=== PATIENT | female | born 1955 | race Caucasian/White ===

== ENCOUNTER 2018-03-26 14:07 | Outpatient (CLI) | payer OTHER | END 2018-03-26 14:08 | disposition home or self-care (01) | LOC: BICMAMMO 14:07 | PROVIDERS: ATTEND Family Medicine | DX: R92.8 Other abnormal and inconclusive findings on diagnostic imaging of breast (principal) | CPT/HCPCS: G0279 ==

== ENCOUNTER → 2018-04-03 | Day surgery (SDC) | payer OTHER | LOC: BICULT 12:06 | PROVIDERS: ATTEND Family Medicine | PROC: 0H9U3ZX Drainage of Left Breast, Percutaneous Approach, Diagnostic (ICD-10-PCS; principal; 2018-04-03) | DX: N60.32 Fibrosclerosis of left breast (principal) | CPT/HCPCS: 19100; 76942; 88305 ==

== ENCOUNTER 2019-08-21 14:19 | Outpatient (CLI) | payer OTHER ==
--- NOTE | 2019-08-21 15:33 | BD ---
BONE DENSITOMETRY USING DEXA: HISTORY: Post menopausal screening for osteoporosis. FINDINGS LUMBAR SPINE BMD (g/cm2) T-SCORE Z-SCORE L1 0.728 -2.4 -1.0 L2 0.766 -2.4 -0.9 L3 0.759 -3.0 -1.3 L4 0.706 -3.2 -1.6 TOTAL 0.740 -2.8 -1.2 BMD (g/cm2) T-SCORE Z-SCORE NECK 0.650 -1.8 -0.6 TOTAL 0.799 -1.2 -0.2 IMPRESSION: Osteoporosis. POS: TPC
--- NOTE | 2019-08-21 16:36 | MMO ---
Bilateral MAMMO Bilat Screen [facility]. CLINICAL HISTORY: Patient is 63 years old and is seen for screening. The patient has no family history of breast cancer. The patient has no personal history of cancer. The patient has a history of left needle biopsy in 2018 - benign. VIEWS: The views performed were: bilateral craniocaudal with tomosynthesis and bilateral mediolateral oblique with tomosynthesis. FILMS COMPARED: The present examination has been compared to prior imaging studies performed at [facility] on 11/11/2011, 12/17/2012, 02/07/2014 and 03/26/2018. This study has been interpreted with the assistance of computer-aided detection. MAMMOGRAM FINDINGS: There are scattered fibroglandular densities. There is a biopsy clip seen in the left breast. There are no suspicious masses, suspicious calcifications, or new areas of architectural distortion. IMPRESSION: THERE IS NO MAMMOGRAPHIC EVIDENCE OF MALIGNANCY. A ROUTINE FOLLOW-UP MAMMOGRAM IN 1 YEAR IS RECOMMENDED. THE RESULTS OF THIS EXAM WERE SENT TO THE PATIENT. ACR BI-RADS Category 2 - Benign finding MAMMOGRAPHY NOTE: 1. A negative mammogram report should not delay a biopsy if a dominant of clinically suspicious mass is present. 2. Approximately 10% to 15% of breast cancers are not detected by mammography. 3. Adenosis and dense breasts may obscure an underlying neoplasm. Reported by: TARA COPELAND MD Electonically Signed: [id number]
== END 2019-08-21 14:20 | disposition home or self-care (01) ==
LOC: BICMAMMO 14:19
PROVIDERS: ATTEND Family Medicine
DX: Z12.31 Encounter for screening mammogram for malignant neoplasm of breast (principal); Z13.820 Encounter for screening for osteoporosis; M81.0 Age-related osteoporosis without current pathological fracture; M85.859 Other specified disorders of bone density and structure, unspecified thigh; Z91.89 Other specified personal risk factors, not elsewhere classified
CPT/HCPCS: 77063; 77067; 77080

== ENCOUNTER 2020-10-26 14:25 | Outpatient (CLI) | payer OTHER, SELFPAY ==
--- NOTE | 2020-10-26 15:36 | MMO ---
Bilateral MAMMO Bilat Screen [facility]. CLINICAL HISTORY: Patient is 65 years old and is seen for screening. The patient has no family history of breast cancer. The patient has no personal history of cancer. The patient has a history of left needle biopsy in 2018 - benign. VIEWS: The views performed were: bilateral craniocaudal with tomosynthesis and bilateral mediolateral oblique with tomosynthesis. FILMS COMPARED: The present examination has been compared to prior imaging studies performed at [facility] on 12/17/2012, 02/07/2014, 03/26/2018 and 08/21/2019. This study has been interpreted with the assistance of computer-aided detection. MAMMOGRAM FINDINGS: There are scattered fibroglandular densities. There is a nodule seen in the lower region of the left breast. This has increased in size from the prior exam. In the right breast, there are no suspicious masses, calcifications or areas of architectural distortion. IMPRESSION: NODULE IN THE LEFT BREAST REQUIRES ADDITIONAL EVALUATION. AN ULTRASOUND EXAM IS RECOMMENDED. ADDITIONAL IMAGING. THE RESULTS OF THIS EXAM WERE SENT TO THE PATIENT. ACR BI-RADS Category 0 - Incomplete: Need additional imaging evaluation. [facility] will notify the patient of the need for additional imaging services. MAMMOGRAPHY NOTE: 1. A negative mammogram report should not delay a biopsy if a dominant of clinically suspicious mass is present. 2. Approximately 10% to 15% of breast cancers are not detected by mammography. 3. Adenosis and dense breasts may obscure an underlying neoplasm. Reported by: TOBY LR MD Electonically Signed: [id number]
== END 2020-10-26 14:26 | disposition home or self-care (01) ==
LOC: BICMAMMO 14:25
PROVIDERS: ATTEND Family Medicine
DX: Z12.31 Encounter for screening mammogram for malignant neoplasm of breast (principal); N63.20 Unspecified lump in the left breast, unspecified quadrant
CPT/HCPCS: 77063; 77067

== ENCOUNTER 2020-10-29 10:51 | Outpatient (CLI) | payer OTHER ==
--- NOTE | 2020-10-29 12:32 | ULT ---
LIMITED LEFT BREAST ULTRASOUND: HISTORY: Abnormal mammogram of 10/26/2020. FINDINGS: Sonographic evaluation of the left lower inner breast demonstrates an avascular focal tubular fluid c ontaining lesion measuring 7 x 2 x 5 mm with echogenic rankin between the 7 and 8 o'clock positions co rresponding to the mammogram finding. This may represent a cyst or a prominent duct. IMPRESSION: BIRADS category 3 - probably benign findings. Followup left diagnostic mammogram and left breast ult rasound is recommended in 6 months. POS: OFF
== END 2020-10-29 10:52 | disposition home or self-care (01) ==
LOC: BICULT 10:51
PROVIDERS: ATTEND Family Medicine
DX: N63.20 Unspecified lump in the left breast, unspecified quadrant (principal)

== ENCOUNTER 2022-11-03 10:42 | Outpatient (CLI) | payer MEDICARE | END 2022-11-03 10:43 | disposition home or self-care (01) | LOC: BICMAMMO 10:42 | PROVIDERS: ATTEND Nurse Practitioner Family | DX: R92.8 Other abnormal and inconclusive findings on diagnostic imaging of breast (principal); N63.20 Unspecified lump in the left breast, unspecified quadrant | CPT/HCPCS: 77065; G0279 ==